=== PATIENT | female | born 1950 | race Caucasian/White ===

== ENCOUNTER 2020-10-07 07:47 | Day surgery (SDC) | payer MEDICARE ==
[~2020-10-07] VITALS: Ht 154.9 cm; Wt 80.0 kg
[~2020-10-07 07:47] MED LIST: ACETAMINOPHEN 650 MG/20.3 ML UDC PO PRN; ASPI-496 PO; BISACODYL 10 MG SUPP PR PRN; CBD GUMMIES PO; CHOL100012 PEG; DIPHENHYDRAMINE 50 MG CAPSULE PO PRN; EPINEPHRINE 1 MG/ML, 1ML ONE; GABA-826 PO; HYDR25TA6 PO; HYDROcodone/APAP 5/325 TABLET PO PRN; KETOROLAC 60 MG/2 ML ONE; LEVO25TA4 PO; LISI-170 PO; LOSA50TA14 PO; MAGNESIUM HYDROXIDE 8%, 30ML UDC PO PRN; METOPROLOL ER PO; NS + 20MEQ KCL 1,000 ML IV SCH; ONDANSETRON 2MG/ML, 2ML IV PRN; ONDANSETRON 4 MG TABLET PO PRN; OXYcodone IR 5MG TABLET PO PRN; ROPIvacaine/PF 0.5%, 20 ML ONE; ROPIvacaine/PF 0.5%, 30 ML ONE; SENNA/DOCUSATE TABLET PO PRN; SODIUM CHLORIDE 0.9% 50 ML ONE; TRANEXAMIC ACID 100 MG/ML, 10ML ONE; UMEC1DIS INH; VANCOMYCIN 1,000 MG ONE; ZOLP10TA5 PO; ZOLPIDEM 5MG TABLET PO PRN
[2020-10-07] MEDS ORDERED: MIDAZOLAM 1 MG/ML, 2ML ONE (08:14)
[2020-10-07] MEDS ORDERED: ONDANSETRON 2MG/ML, 2ML ONE (08:15)
[2020-10-07] MEDS ORDERED: NEOSTIGMINE 1 MG/ML, 10ML ONE (08:15)
[2020-10-07] MEDS ORDERED: DEXAMETHASONE 4 MG/ML, 1ML ONE (08:15)
[2020-10-07] MEDS ORDERED: CEFAZOLIN 1,000 MG ONE (08:15)
[2020-10-07] MEDS ORDERED: FENTANYL PF 250 MCG/5ML ONE ×2 (08:15→09:24)
[2020-10-07] MEDS ORDERED: PROPOFOL 10 MG/ML, 20ML ONE (08:15)
[2020-10-07] MEDS ORDERED: GLYCOPYRROLATE 0.2MG/1ML, 5ML ONE (08:15)
[2020-10-07 08:41] VITALS: BP 154/85
[2020-10-07] MEDS ORDERED: GABAPENTIN 300 MG CAPSULE ONE (08:42)
[2020-10-07] MEDS ORDERED: ACETAMINOPHEN 500 MG TABLET ONE (08:42)
[2020-10-07] MEDS ORDERED: CHLORHEXIDINE 15 ML UDC ONE (08:43)
[2020-10-07] MEDS ORDERED: GABAPENTIN 300 MG CAPSULE PO ONE (09:00)
[2020-10-07] MEDS ORDERED: LOSARTAN 50MG TABLET PO SCH (09:00)
[2020-10-07] MEDS ORDERED: HYDROCHLOROTHIAZIDE 25 MG TABLET PO SCH (09:00)
[2020-10-07] MEDS ORDERED: METOPROLOL SUCCINATE 25 MG TAB.ER.24H PO SCH (09:00)
[2020-10-07] MEDS ORDERED: ACETAMINOPHEN 500 MG TABLET PO ONE (09:00)
[2020-10-07] MEDS ORDERED: DOCUSATE 100 MG CAPSULE PO SCH (09:00)
[2020-10-07] MEDS ORDERED: LEVOTHYROXINE 25 MCG TABLET PO SCH (09:00)
[2020-10-07] MEDS ORDERED: TEMPLATE NON-FORMULARY MED. (Umeclidinium Brm/Vilanterol Tr (Anoro Ellipta 62.5-25 Mcg Inh INH SCH (09:00)
[2020-10-07] MEDS ORDERED: ROCURONIUM 10 MG/ML,10ML ONE (09:04)
[2020-10-07] MEDS ORDERED: HYDROmorphone 1 MG/ML, 1ML INJ IVPush PRN (09:30)
[2020-10-07] MEDS ORDERED: HALOPERIDOL 5 MG/ML IV PRN (09:30)
[2020-10-07] MEDS ORDERED: PROMETHAZINE 25 MG/ML, 1ML IVPush PRN (09:30)
[2020-10-07] MEDS ORDERED: morphine SULFATE 10 MG/ML, 1ML IVPush PRN (09:30)
[2020-10-07] MEDS ORDERED: hydrALAzine 20 MG/ML, 1ML IV PRN (09:30)
[2020-10-07] MEDS ORDERED: OXYcodone 5 MG/5 ML ORAL.SOL UDC PO PRN (09:30)
[2020-10-07] MEDS ORDERED: ACETAMINOPHEN 325 MG TABLET PO PRN (09:30)
[2020-10-07] MEDS ORDERED: MEPERIDINE/PF 25MG/0.5ML IVPush PRN (09:30)
[2020-10-07] MEDS ORDERED: LABETALOL 5MG/ML, 20ML IV PRN (09:30)
[2020-10-07] MEDS ORDERED: FENTANYL PF 100 MCG/2ML ONE (10:25)
[2020-10-07] MEDS ORDERED: OXYcodone 5 MG/5 ML ORAL.SOL UDC ONE (10:25)
[2020-10-07] MEDS: FENTANYL PF 100 MCG/2ML IV PRN ×2 (10:30→11:20)
[2020-10-07] MEDS ORDERED: CEFAZOLIN PMX 2GM/50ML 50 ML IVPB SCH (13:00)
[2020-10-07] MEDS: GABAPENTIN 100 MG CAPSULE PO SCH ×2 (13:14→15:53)
[2020-10-07 15:15] VITALS: BP 116/84
[2020-10-07] MEDS ORDERED: ASPIRIN 81 MG TABLET EC PO SCH (18:00)
[2020-10-08] MEDS ORDERED: DEXAMETHASONE 4 MG/ML, 1ML IVPush SCH (06:00)
== END 2020-10-07 16:40 | disposition home or self-care (01) ==
LOC: OUT 07:47 → 4NE 11:59 → DCLOUNGE 16:30 → OUT 16:40
PROVIDERS: ATTEND Orthopaedic Surgery
DX: M16.0 Bilateral primary osteoarthritis of hip (principal); M87.88 Other osteonecrosis, other site; M25.752 Osteophyte, left hip; E03.9 Hypothyroidism, unspecified; J44.9 Chronic obstructive pulmonary disease, unspecified; I10 Essential (primary) hypertension; Z79.890 Hormone replacement therapy; Z79.899 Other long term (current) drug therapy; Z87.891 Personal history of nicotine dependence; Z88.0 Allergy status to penicillin; Z88.5 Allergy status to narcotic agent; Z88.8 Allergy status to other drugs, medicaments and biological substances; Z91.041 Radiographic dye allergy status; Z82.49 Family history of ischemic heart disease and other diseases of the circulatory system
CPT/HCPCS: 27130; 72170; 73501; 97162; 97165; C1713; C1776; J0171; J0690; J1100; J1885; J2250; J2405; J2704; J2710; J2795; J3010; J3370; J3480; 76000